=== PATIENT | female | born 1950 | race Caucasian/White ===

== ENCOUNTER 2016-08-01 10:15 | Emergency (ER) | payer OTHER ==
[2006-10-15 13:36] VITALS: BP 102/63
[~2016-08-01] VITALS: Ht 165.1 cm; Wt 93.2 kg
[~2016-08-01 10:15] MED LIST: ASPIR-LOW81 MG PO; ATORVASTATIN PO; CALCIUM + D 5001 TAB PO; FERROUS SULFATE65 MG PO; FLONASE NASAL S16 GM NS; HCTZ 25MG25 MG PO; LISINOPRIL10 MG PO; NEXIUM40 MG PO; OMEGA-31000 MG PO; SINGULAIR10 MG PO; VITAMIN B COMPL1 T16 PO
[2016-08-01 10:20] VITALS: TEMP 98.9
[2016-08-01 11:25] LABS: BASO % 0.2 % (0.0-2.0); EOS # 0.1 (0.0-0.7); EOS % 0.8 % (0-4.0); GRAN # 10.5 (1.4-6.5); GRAN % 81.2 % (42.2-75.2); HEMATOCRIT 41.5 % (37.0-47.0); HEMOGLOBIN 14.5 g/dl (12.5-16.0); LYMPH # 1.3 (1.2-3.4); MEAN CELL VOLUME 93 fl (80.0-100.0); MEAN CORPUSCULAR HEMOGLOBIN 32 pg (27.0-31.0); MEAN CORPUSCULAR HGB CONC 35 g/dl (33.0-37.0); MEAN PLATELET VOLUME 12.1 fl (7.4-10.4); MONO % 7.5 % (1.7-9.3); PLATELET COUNT 199 K/mm3 (130-400); RED BLOOD COUNT 4.48 M/mm3 (4.10-5.30); REDCELL DISTRIBUTION WIDTH-CV 12.3 % (11.5-14.5)
[2016-08-01] MEDS ORDERED: ZYRTEC 10MG10 MG PO (11:34)
[2016-08-01] MEDS ORDERED: CINNAMON500 MG (11:35)
[2016-08-01] MEDS ORDERED: COZAAR 50MG50 MG/TAB PO (11:36)
[2016-08-01] MEDS ORDERED: PRILOSEC 20MG20 MG PO (11:36)
[2016-08-01] MEDS ORDERED: FOLIC ACID800 MCG PO (11:36)
[2016-08-01] MEDS ORDERED: WOMEN'S DAILY1 TAB PO (11:37)
[2016-08-01] MEDS ORDERED: FLAX OIL1000 MG (11:37)
[2016-08-01] MEDS ORDERED: CRESTOR20 MG PO (11:37)
[2016-08-01 11:45] LABS: ADJUSTED CALCIUM 9.5 mg/dL (8.4-10.2); ALANINE AMINOTRANSFERASE 29 U/L (9-52); ALBUMIN 4.7 gm/dL (3.5-5.0); ALKALINE PHOSPHATASE 71 U/L (50-136); ANION GAP 12 mmol/L (7-16); BILIRUBIN,TOTAL 1.6 mg/dL (0.0-1.0); BLOOD UREA NITROGEN 12 mg/dL (7-17); CALCIUM 10.1 mg/dL (8.4-10.2); CARBON DIOXIDE 30 mmol/L (22-30); CHLORIDE 95 mmol/L (98-107); CREATININE, serum 0.73 mg/dL (0.52-1.25); GLUCOSE 111 mg/dL (74-106); LIPASE 66 U/L (23-300); POTASSIUM 3.1 mmol/L (3.4-5.0); SODIUM 136 mmol/L (137-145); TOTAL PROTEIN 7.5 gm/dL (6.4-8.2)
[2016-08-01 11:47] LABS: PH 7 (5-8); SQUAMOUS EPITHELIAL None Seen /hpf; URINE APPEARANCE Hazy; URINE BACTERIA None Seen /hpf; URINE BILIRUBIN Negative (NEGATIVE); URINE BLOOD Negative (NEGATIVE); URINE COLOR Blue; URINE GLUCOSE Negative (NEGATIVE); URINE KETONE Trace (NEGATIVE); URINE RBC 0-2 /hpf; URINE UROBILINOGEN Negative (NEGATIVE); URINE WBC 0-2 /hpf
[2016-08-01 12:12] LABS: THYROID STIMULATING HORMONE 0.859 uIU/mL (0.465-4.680)
[2016-08-01 12:22] LABS: TROPONIN-I < 0.012 ng/mL (0.000-0.034)
[2016-08-01] MEDS ORDERED: CIPRO 500MG TA500 MG PO (13:36)
[2016-08-01] MEDS ORDERED: FLAGYL500 MG PO (13:36)
[2016-08-01] MEDS ORDERED: ZOFRAN ODT4 MG PO (13:37)
[2016-08-01 14:03] VITALS: BP 145/85; PULSE 78
== END 2016-08-01 14:06 | disposition home or self-care (01) ==
LOC: COL.ER 10:15
PROVIDERS: Emergency Medicine
DX: K57.32 Diverticulitis of large intestine without perforation or abscess without bleeding (principal)
CPT/HCPCS: J2405; J7030; Q9967

== ENCOUNTER → 2017-06-10 | Outpatient (CLI) | payer MEDICARE, OTHER ==
[~2017-06-10] MED LIST changes: +CINNAMON500 MG; +CIPRO 500MG TA500 MG PO; +COZAAR 50MG50 MG/TAB PO; +CRESTOR20 MG PO; +FLAGYL500 MG PO; +FLAX OIL1000 MG; +FOLIC ACID800 MCG PO; +PRILOSEC 20MG20 MG PO; +WOMEN'S DAILY1 TAB PO; +ZOFRAN ODT4 MG PO; +ZYRTEC 10MG10 MG PO
== END ==
LOC: MC.RAD 05-20 09:00
DX: Z12.31 Encounter for screening mammogram for malignant neoplasm of breast (principal)

== ENCOUNTER → 2017-06-16 | Outpatient (CLI) | payer MEDICARE, OTHER | LOC: MC.RAD 09:17 | DX: D24.1 Benign neoplasm of right breast (principal) ==

== ENCOUNTER → 2017-10-25 | Outpatient (CLI) | payer MEDICARE, OTHER | LOC: COL.RAD 11:09 | DX: K44.9 Diaphragmatic hernia without obstruction or gangrene (principal); K57.30 Diverticulosis of large intestine without perforation or abscess without bleeding; N28.9 Disorder of kidney and ureter, unspecified; Z90.710 Acquired absence of both cervix and uterus | CPT/HCPCS: Q9967 ==

== ENCOUNTER 2018-05-31 12:52 | Observation (INO) | payer MEDICARE, OTHER ==
[~2018-05-31] VITALS: Ht 165.1 cm; Wt 93.0 kg
[2018-05-31] VITALS (11 sets, daily range): BP systolic 104–152; BP diastolic 59–79; PULSE 69–84; TEMP 98–98.4
[~2018-05-31 12:52] MED LIST changes: +HCTZ 25MG TAB25 MG PO; -HCTZ 25MG25 MG PO
--- NOTE | 2018-05-31 13:30 | NUR ---
arrived per WC from admissions, alert and oriented, instructed to change into gown,
[2018-05-31] MEDS ORDERED: FLONASE NASAL S16 GM NS (13:49)
[2018-05-31] MEDS ORDERED: VITAMIN D 50,1.25 MG PO (13:50)
--- NOTE | 2018-05-31 14:00 | NUR ---
SDC assessment completed, see for further info, has INT in right forearm that is intact without redness or swelling, Dr Wilkins in to see patient
--- NOTE | 2018-05-31 15:00 | NUR ---
resting quietly and dozing at intervals, consent signed, denies current needs
--- NOTE | 2018-05-31 15:05 | NUR ---
spoke with Nathalia Elkins CRNA and he is OK with 22G IV in right antecubital
--- NOTE | 2018-05-31 15:20 | NUR ---
to surgery per bed
--- NOTE | 2018-05-31 18:24 | NUR ---
remains in surgery
--- NOTE | 2018-05-31 19:05 | NUR ---
returned to room from PACU per bed, bedside shift report given to RAJENDRA Davis
--- NOTE | 2018-05-31 19:20 | NUR ---
Report received from Catherine DREW. Patient alert and oriented x 4. Post-op vitals WNL. and daughter Estefany at bedside. Patient denies pain at this time. Takes ice water but declines jello or broth at this time. Educated on couph and deep breathing and no straws following abdominal surgery.
--- NOTE | 2018-05-31 21:00 | NUR ---
Patient rests in bed with eyes closed. Family left for the night. VSS.
--- NOTE | 2018-05-31 22:00 | NUR ---
Patient up to the bathroom s/b assist with IV pole and voids. Takes jello and glass of water without problems. Tylenol and IV ABT reviewed and given. Denies need for stronger pain med.
[2018-06-01] VITALS: PULSE 83; TEMP 98.5
--- NOTE | 2018-06-01 00:30 | NUR ---
Patient up to the bathroom with S/B assist. Voids clear yellow urine and rests slowly back in bed. Min assist legs into bed. SCD's on. Denies need for pain med.
--- NOTE | 2018-06-01 04:00 | NUR ---
AWAKENED FOR AM MEDS. REVIEWED AND GIVEN. DENIES PAIN AT THIS TIME. ALERT AND ORIENTED X 4. UP TO THE BATHROOM EARLIER AND VOIDED.
[2018-06-01 04:16] VITALS: BP 145/68; PULSE 86; TEMP 98.2
--- NOTE | 2018-06-01 05:43 | NUR ---
PATIENT RESTS IN BED WITH EYES CLOSED. RESPIRATIONS WITH EASE.
--- NOTE | 2018-06-01 07:02 | NUR ---
awake resting in bed, bedside shift report received from RAJENDRA Davis, provided chicken broth and jello per patient's request
--- NOTE | 2018-06-01 07:30 | NUR ---
Dr Wilkins in to see patient, will advance diet, patient instructed on ordering food, verbalizes understanding, full assessment completed, see interventions for further info
[2018-06-01 08:00] VITALS: BP 126/64; PULSE 68; TEMP 98.1
[2018-06-01 08:01] LABS: HEMOGLOBIN 12.6 g/dl (12.5-16.0)
[2018-06-01 08:02] LABS: HEMATOCRIT 36.6 % (37.0-47.0)
[2018-06-01 08:08] LABS: CALCIUM 9.1 mg/dL (8.4-10.2); CREATININE, serum 0.69 mg/dL (0.52-1.25); POTASSIUM 3.4 mmol/L (3.4-5.0)
--- NOTE | 2018-06-01 09:22 | NUR ---
resting in bed, states walked in horn with and went to bathroom and had a sponge bath, has ordered breakfast, denies needs at this time
--- NOTE | 2018-06-01 09:45 | NUR ---
Initial visit; Patient thanked [employer] for looking in on her and offering God's blessings for her and she requests that [employer] keep her entire family in [employer]'s prayers.
--- NOTE | 2018-06-01 10:49 | NUR ---
appears to be sleeping, in bed with eyes closed, resp quiet and easy
[2018-06-01 11:00] VITALS: BP 123/58; PULSE 81; TEMP 99
--- NOTE | 2018-06-01 11:30 | NUR ---
awake resting in bed, admission assessment completed
--- NOTE | 2018-06-01 11:46 | NUR ---
TORREY and SW student met with the patient to discuss discharge plan. The patient lives in [place] with her , Riley. The patient has a walker and crutches available and reports indpendence with ADLs. The patient's PCP is Dr. Roper and she receives her medications at [facility]. The patient reports no difficulties obtaining her medications. The patient reports that she does have advance directives completed and they are at home. The patient plans to return home upon discharge. No additional needs at this time.
--- NOTE | 2018-06-01 15:30 | NUR ---
resting in bed visiting with family
[2018-06-01 16:00] VITALS: BP 113/55; BP 13/55; PULSE 82; TEMP 98.5
--- NOTE | 2018-06-01 16:51 | NUR ---
resting in bed watching TV without c/os
--- NOTE | 2018-06-01 18:27 | NUR ---
appears to be dozing, in bed with eyes closed
--- NOTE | 2018-06-01 19:04 | NUR ---
bedside shift report given to RAJENDRA Davis
[2018-06-01 20:00] VITALS: BP 132/53; PULSE 93; TEMP 98.4
--- NOTE | 2018-06-01 20:30 | NUR ---
Patient reports she's not had her GERD medication in 2 days and GERD really bad at this time. Protonix given. At 2139 patient reports GERD still significant and tums is helpful at home. DR Chakraborty notified of above and new order received-tums given followed by zofran for nausea. At 2300, patient rests with eyes closed. Respirations with ease.
[2018-06-02 00:35] VITALS: BP 134/56; PULSE 102; TEMP 98.7
--- NOTE | 2018-06-02 03:00 | NUR ---
Patient resting in bed. Respirations with ease.
[2018-06-02 05:19] VITALS: BP 133/57; PULSE 101; TEMP 98.6
--- NOTE | 2018-06-02 06:13 | NUR ---
Patient awakened for am meds. Denies needs at this time. States hoping to go home this am.
[2018-06-02 07:00] VITALS: BP 130/59; PULSE 94; TEMP 99
[2018-06-02 07:40] VITALS: PULSE 92; TEMP 98.1
--- NOTE | 2018-06-02 09:04 | NUR ---
Patient alert and oriented, answers questions appropriately. See assessment. Abdomen soft, non distended, non tender. +Flatus. Bowel sounds hyperactive x4 quads. Lap sites and transverse incision with edges well approximated, no drainage noted. Ambulation encouraged. No other c/o at this time.
[2018-06-02 12:40] VITALS: BP 129/57; PULSE 99; TEMP 98.4
--- NOTE | 2018-06-02 14:41 | NUR ---
Discharge instructions reveiwed with patient, verbalized understanding. Discharged via wheelchair to auto/home with family at 1425.
== END 2018-06-02 14:25 | disposition home or self-care (01) ==
LOC: SDCO 12:52 → SURG 12:52 → SDCO 06-01 10:07 → SURG 06-01 10:08
PROVIDERS: ADMIT Surgery
DX: K35.33 Acute appendicitis with perforation, localized peritonitis, and gangrene, with abscess (principal); K63.5 Polyp of colon; I10 Essential (primary) hypertension; E78.5 Hyperlipidemia, unspecified; K21.9 Gastro-esophageal reflux disease without esophagitis; M19.90 Unspecified osteoarthritis, unspecified site; Z86.711 Personal history of pulmonary embolism; E66.9 Obesity, unspecified; Z96.653 Presence of artificial knee joint, bilateral; Z90.710 Acquired absence of both cervix and uterus; Z88.6 Allergy status to analgesic agent; Z87.891 Personal history of nicotine dependence
CPT/HCPCS: OP; A9284; G0378; G0379; J1100; J1650; J1885; J2270; J2405; J2543; J2704; J7120

== ENCOUNTER 2018-06-03 10:04 | Observation (INO) | payer MEDICARE, OTHER ==
[~2018-06-03] VITALS: Ht 165.1 cm; Wt 91.1 kg
[~2018-06-03 10:04] MED LIST changes: +VITAMIN D 50,1.25 MG PO
[2018-06-03 10:52] LABS: HEMATOCRIT 37.8 % (37.0-47.0); MEAN CELL VOLUME 93 fl (80.0-100.0); MEAN CORPUSCULAR HEMOGLOBIN 32 pg (27.0-31.0); MEAN CORPUSCULAR HGB CONC 34 g/dl (33.0-37.0); MEAN PLATELET VOLUME 11.1 fl (7.4-10.4); PLATELET COUNT 213 K/mm3 (130-400); RED BLOOD COUNT 4.05 M/mm3 (4.10-5.30); REDCELL DISTRIBUTION WIDTH-CV 12.3 % (11.5-14.5)
[2018-06-03 11:00] LABS: CALCIUM 9.2 mg/dL (8.4-10.2); CREATININE, serum 0.71 mg/dL (0.52-1.25)
[2018-06-03 11:03] LABS: POTASSIUM 2.9 mmol/L (3.4-5.0)
[2018-06-03 12:12] VITALS: BP 135/67; PULSE 80; TEMP 97.6
--- NOTE | 2018-06-03 12:17 | NUR ---
PATIENT ARRIVED TO ROOM 343. PATIENT ORIENTED TO ROOM BY SURGICAL STAFF.
--- NOTE | 2018-06-03 13:30 | NUR ---
PATIENT ASSESSMENT COMPLETE. SEE 5 PAGE. 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 IV STARTED IN LEFT HAND BY RN. IV FLUIDS INFUSING TO LEFT HAND IV VIA PUMP. CALL LIGHT WITHIN REACH. NO OTHER NEEDS AT THIS TIME.
--- NOTE | 2018-06-03 15:04 | NUR ---
PATIENT COMPLAINS OF HEADACHE AND ABDOMINAL PAIN. PATIENT GIVEN PRN DOSE OF NORCO WITH ADDITIONAL 325MG OF TYLENOL PER PATIENT REQUEST. WILL CONTINUE TO MONITOR.
[2018-06-03 15:37] VITALS: BP 138/68; PULSE 87; TEMP 98.5
[2018-06-03 19:59] VITALS: BP 123/64; PULSE 86; TEMP 98.3
--- NOTE | 2018-06-03 20:00 | NUR ---
Patient resting in bed at this time. Patient is alert and oriented, answers questions appropriately. Patient is afebrile. IVF infusing per order. Patient requests PRN norco with HS medications. Patient SBA to bathroom where she is continent of bowel and bladder. Surgical sites are WA and CDI, some bruising around the sites noted. Patient denies further needs at this time, call light within reach.
[2018-06-04 00:02] VITALS: BP 123/65; PULSE 99; TEMP 98.7
[2018-06-04 05:45] VITALS: BP 138/68; PULSE 83; TEMP 98.1
--- NOTE | 2018-06-04 06:30 | NUR ---
Patient has rested intermittently overnight. Patient has remained afebrile. IVF continue per order. Patient up several times during the night to bathroom with SBA where she continues to be continent of bowel and bladder. Patient currently denies needs at this time, call light within reach.
[2018-06-04 07:57] LABS: CALCIUM 8.3 mg/dL (8.4-10.2); CREATININE, serum 0.57 mg/dL (0.52-1.25); MAGNESIUM 1.7 mg/dL (1.6-2.3); POTASSIUM 3.3 mmol/L (3.4-5.0)
--- NOTE | 2018-06-04 08:36 | NUR ---
Pt is awake and A/Ox4, sitting up in recliner. She denies pain other than her back from "the uncomfortable bed and chair." Lap sites to abdomen are CDI, open to air. IVF are infusing into left hand without difficulty. Pt is up as tolerated in room. States she is passing gas and had a BM this AM. Denies any needs.
[2018-06-04 09:11] VITALS: BP 133/81; PULSE 85; TEMP 98.1
--- NOTE | 2018-06-04 10:41 | NUR ---
Pt was discharged home from hospital. All discharge instructions and paperwork were reviewed with pt and her who both expressed understanding and had no questions. Saline lock removed, catheter tip intact. Pt was escorted out of facility by staff.
== END 2018-06-04 11:01 | disposition home or self-care (01) ==
LOC: COL.RAD 10:04 → SURG 11:54
PROVIDERS: ADMIT Surgery
DX: R50.82 Postprocedural fever (principal); R62.7 Adult failure to thrive; E66.9 Obesity, unspecified; Z86.711 Personal history of pulmonary embolism; I10 Essential (primary) hypertension; E78.5 Hyperlipidemia, unspecified; K21.9 Gastro-esophageal reflux disease without esophagitis; Z96.653 Presence of artificial knee joint, bilateral; E87.1 Hypo-osmolality and hyponatremia; E87.6 Hypokalemia
CPT/HCPCS: A4216; A9284; G0378; J0696; J1650; J3480; Q9967

== ENCOUNTER → 2018-07-20 | Outpatient (CLI) | payer MEDICARE, OTHER | LOC: MC.RAD 11:04 | DX: Z12.31 Encounter for screening mammogram for malignant neoplasm of breast (principal) ==

== ENCOUNTER → 2018-07-22 | Outpatient (CLI) | payer MEDICARE, OTHER | LOC: MC.RAD 10:02 | DX: N60.12 Diffuse cystic mastopathy of left breast (principal); N60.02 Solitary cyst of left breast ==

== ENCOUNTER → 2019-10-05 | Outpatient (CLI) | payer MEDICARE, OTHER | LOC: MC.RAD 09:17 | DX: Z12.31 Encounter for screening mammogram for malignant neoplasm of breast (principal) ==

== ENCOUNTER → 2020-02-21 | Outpatient (CLI) | payer MEDICARE, OTHER ==
[~2020-02-21] VITALS: Ht 163.8 cm; Wt 93.9 kg
[~2020-02-21] MED LIST changes: +ALDACTONE 25MG25 M1 PO; -ASPIR-LOW81 MG PO; +ASPIRIN E.C. 8181 MG PO; -CALCIUM + D 5001 TAB PO; +CITRACAL-D3 ER1 EACH PO; +COREG 3.123.125 MG/T PO; +COZAAR 25MG25 MG/TAB PO; -COZAAR 50MG50 MG/TAB PO; +FISH OIL 500 M1 EAC1 PO; +IRON TABLETS325 MG PO; +KLOR-CON M2020 MEQ PO; +LASIX 40MG TABL40 MG PO; +MAG-OX 400400 MG/TAB PO; +MASON NATURAL2000 IU PO; -OMEGA-31000 MG PO; +PROBIOTIC ACID1 EAC3 PO; +SINGULAIR 110 MG/TAB PO; -SINGULAIR10 MG PO; -VITAMIN D 50,1.25 MG PO
[2020-02-21 10:29] VITALS: BP 136/84; PULSE 72
== END ==
LOC: LIGHT 10:03
DX: E66.01 Morbid (severe) obesity due to excess calories (principal); Z68.35 Body mass index [BMI] 35.0-35.9, adult
CPT/HCPCS: G0463

== ENCOUNTER → 2020-10-07 | Outpatient (CLI) | payer MEDICARE, OTHER | LOC: MC.RAD 09:45 | DX: Z12.31 Encounter for screening mammogram for malignant neoplasm of breast (principal); N63.20 Unspecified lump in the left breast, unspecified quadrant ==

== ENCOUNTER → 2020-11-08 | Outpatient (CLI) | payer MEDICARE | LOC: ZCOL.LAB 12:34 | DX: M79.605 Pain in left leg (principal); M79.89 Other specified soft tissue disorders ==

== ENCOUNTER 2021-07-16 08:49 | Outpatient (RCR) | payer MEDICARE, OTHER | END 2021-07-17 | LOC: MKS.ESL.PT | DX: M25.512 Pain in left shoulder (principal); G89.29 Other chronic pain ==

== ENCOUNTER 2021-08-08 11:15 | Outpatient (RCR) | payer MEDICARE, OTHER | END 2021-08-08 12:16 | disposition home or self-care (01) | LOC: MKS.ESL.PT 11:15 | DX: M25.512 Pain in left shoulder (principal); G89.29 Other chronic pain ==

== ENCOUNTER 2023-02-16 10:59 | Emergency (ER) | payer MEDICARE, OTHER ==
[~2023-02-16] VITALS: Ht 162.6 cm; Wt 90.9 kg
[2023-02-16 11:10] VITALS: TEMP 97.7
[2023-02-16 12:36] VITALS: BP 130/81; PULSE 64
== END 2023-02-16 12:44 | disposition home or self-care (01) ==
LOC: COL.ER 10:59
DX: S09.90XA Unspecified injury of head, initial encounter (principal); S00.12XA Contusion of left eyelid and periocular area, initial encounter; Z88.6 Allergy status to analgesic agent; W01.10XA Fall on same level from slipping, tripping and stumbling with subsequent striking against unspecified object, initial encounter; Y93.01 Activity, walking, marching and hiking; Y92.59 Other trade areas as the place of occurrence of the external cause

== ENCOUNTER → 2023-04-26 | Outpatient (CLI) | payer MEDICARE | LOC: MC.RAD 11:00 | DX: R92.8 Other abnormal and inconclusive findings on diagnostic imaging of breast (principal) ==

== ENCOUNTER → 2024-03-22 | Outpatient (CLI) | payer MEDICARE | LOC: MC.RAD 09:00 | DX: Z12.31 Encounter for screening mammogram for malignant neoplasm of breast (principal) ==